=== PATIENT | male | born 1945 | race Caucasian/White ===

== ENCOUNTER 2016-08-09 20:35 | Inpatient (IN) | payer MEDICARE, OTHER ==
--- NOTE | ~2016-08-09 | HP ---
History And Physical [facility] [address] [place]. [address] NAME: DAMIAN MEDEIROS : 43 STATUS : ADM Marcos PAT#: [id number] AGE: 71 ADM/REG DATE : 08/09/16 MR#: [id number] REPORT SERV DATE: 08/10/16 DICTATED BY: MARGARITA ARAYA DATE: 08/09/16 REPORT STATUS : Draft TRANSCRIBED BY: MODBranden DATE: 08/09/16 DATE OF ADMISSION: 08/09/2016 POINT OF ENTRY: [facility] Emergency Department. PRIMARY [employer] DEPUTY SHERIFF: Dr. Potter. PRIMARY TIPPLE TENDER: Dr. Best. CHIEF COMPLAINT: Dizziness and syncope. HISTORY OF PRESENT ILLNESS: Mr. Medeiros is a 71-year-old gentleman with a history of coronary artery disease, status post PCI and coronary artery bypass grafting as well as ischemic cardiomyopathy with chronic systolic congestive heart failure with ejection fraction of 30% status post pacemaker and ICD insertion, who presents to emergency department today with multiple complaints including syncope as well as persistent dizziness. The patient and states that his troubles with dizziness have been going on now for a few weeks. He states that he is dizzy all the time at rest as well as with ambulation and exertion. Does not have any associated nausea or vomiting. Does not describe any classic vertigo-type symptoms, but is worse upon standing with movement of the head. Denies any hearing loss or tinnitus, but does report some troubles with severe headaches in the past few weeks. About eight days ago, the patient suffered a syncopal episode while rising from a seated position. He has continued to have very severe presyncopal episodes almost bordering on jose antonio syncope over the past week as well. also describes a sensation of disequilibrium as well as ataxia when Mr. Medeiros tries to get up to ambulate to the bedroom. He denies any fevers, night sweats, chills, cough, sputum production, abdominal pain, nausea, vomiting, diarrhea, constipation, dysuria, lower extremity edema, melena, hematochezia, or hemoptysis. He does report occasional episodes of chest pain, none recently. He has chronic shortness of breath, which is unchanged. Initial evaluation in the emergency department is notable for stable vital signs. Orthostatic vital signs also were unremarkable. Labs notable for troponin that was negative. INR was 1.7. Chest x-ray was clear. EKG showed an A-paced rhythm. The patient was subsequently admitted to the Hospitalist Service for further evaluation and management. COMPREHENSIVE REVIEW OF SYSTEMS: Otherwise negative unless listed in history present illness. PREVIOUS MEDICAL HISTORY: 1. Coronary artery disease with prior PCI and cardiac bypass grafting. 2. Ischemic cardiomyopathy. 3. Chronic systolic congestive heart failure with ejection fraction of 30%. 4. Status post pacemaker and ICD insertion. 5. COPD, on 2 L nasal cannula. History And Physical [address] [address] NAME: DAMIAN MEDEIROS : 43 STATUS : ADM Marcos PAT#: [id number] AGE: 71 ADM/REG DATE : 08/09/16 MR#: [id number] REPORT SERV DATE: 08/10/16 DICTATED BY: MARGARITA ARAYA DATE: 08/09/16 REPORT STATUS : Draft TRANSCRIBED BY: MODL DATE: 08/09/16 6. History of cerebrovascular accident. 7. Hypertension. 8. Hyperlipidemia. 9. Peripheral arterial disease. SURGICAL HISTORY: 1. Medtronic pacemaker and ICD insertion. 2. CABG. 3. PCI. 4. Abdominal aortic aneurysm. Endovascular repair. ALLERGIES: ARE TO CODEINE, PREDNISONE, WELL AN INTOLERANCE TO STATINS. HOME MEDICATIONS: 1. Aspirin 81 mg q.h.s. 2. Symbicort two puff inhalations b.i.d. 3. Coreg 25 mg b.i.d. 4. Colace 100 mg q.4 hours. 5. Imdur 30 mg daily. 6. Aldactone 25 mg daily. 7. Coumadin 6.5 mg daily. SOCIAL HISTORY: Still smokes about one pack every week. Denies any alcohol or illicits. He is . is at bedside. FAMILY MEDICAL HISTORY: Mother with diabetes, coronary artery disease, and cancer. Father with Alzheimer's and stroke. Siblings with cancer and coronary artery disease. LABS AND IMAGIN. White count is 5.0, hemoglobin is 12.6, hematocrit is 34.9, platelet count is 219. INR is 1.7. 2. Sodium is 126, potassium 4.0, chloride 92, carbon dioxide 27, BUN 10, creatinine 0.73 glucose is 89, calcium is 8.8, magnesium is 1.9, protein is 6.8, albumin is 2.9, bilirubin is 0.3, ALT 17, AST 24, alkaline phosphatase is 74. 3. Troponin is less than 0.02. 4. Chest x-ray per my review shows no acute cardiopulmonary abnormality. Does show COPD- type changes with flattened diaphragms and hyperinflation. 5. EKG per my review shows an A-paced rhythm. Heart rates in the low 60s and no evidence of any acute ischemia or infarction. PHYSICAL EXAMINATION: VITAL SIGNS: Temperature is 98.3 degrees Fahrenheit, pulse is 61, respirations 16, saturating 97% on room air, blood pressure 135/71. GENERAL: The patient is awake, alert, and in no acute distress, resting comfortably in bed. He is a chronically ill-appearing elderly male. is at bedside. HEENT: Atraumatic and normocephalic. Moist mucous membranes. Pupils are equal, round, and reactive to light and accommodation. Extraocular eye movements intact. He is edentulous. History And Physical [address] [address] NAME: DAMIAN MEDEIROS : 43 STATUS : ADM Marcos PAT#: [id number] AGE: 71 ADM/REG DATE : 08/09/16 MR#: [id number] REPORT SERV DATE: 08/10/16 DICTATED BY: MARGARITA ARAYA DATE: 08/09/16 REPORT STATUS : Draft TRANSCRIBED BY: DELORES DATE: 08/09/16 NECK: No jugular venous distention. No carotid bruits. CARDIAC: Regular rate and rhythm. No murmurs or gallops. Normal S1, S2. LUNGS: On oxygen. Does have decreased breath sounds in the base as well as prolonged expiratory phase and distant breath sounds, but no wheezes, rhonchi, or crackles. ABDOMEN: Soft, nontender, nondistended. Good bowel sounds. No rebound, guarding, or rigidity. EXTREMITIES: Warm and well perfused. No cyanosis, clubbing, or edema. SKIN: Warm and dry. PSYCH: Affect appropriate. NEURO: Alert and oriented x3. Cranial nerves 2 through 12 grossly intact. Speech is normal. Gait not assessed. Strength is 5/5 bilateral upper and lower extremities. Cerebellar function is intact with [id number]. The patient does have some lateral beating nystagmus with extreme gaze deviation as well as what appears to be some rotatory nystagmus with upward gaze deviation, which did induce worsening of the patient's chronic symptoms. ASSESSMENT: Mr. Meediros is a 71-year-old gentleman, who presents with a few-week history of persistent dizziness, disequilibrium, and ataxia as well as presyncope and syncopal episode. PROBLEM LIST: 1. Presyncope and syncope. 2. Dizziness and disequilibrium, concerning for vertigo. 3. Hyponatremia. 4. Chronic systolic congestive heart failure. 5. History of coronary artery disease. 6. Hypertension. PLAN: 1. Syncope. We will work this up with echocardiogram, carotid arterial Dopplers. Trend out cardiac enzymes as well as interrogate the patient's pacemaker. Of note, orthostatic vital signs are remarkable here. We will gently hydrate the patient given his hyponatremia. 2. Dizziness and disequilibrium concerning for vertigo. Based on the patient's history and exam, I am concern for BPPV as etiology of the patient's continuous sensation of dizziness and disequilibrium. We will check a stat CT scan of the brain here in the ER, order an MRI for the morning. We will empirically place the patient on some scheduled meclizine to see if that improves at all. 3. Chronic systolic congestive heart failure. The patient currently appears euvolemic at this time. We will check a BNP level. Continue the patient's home cardiac medications. 4. History of coronary artery disease. The patient denies any current chest pain, but has had some chest pain in the recent past. EKG is nonischemic. Troponin is negative. We will continue to trend these out. 5. Hyponatremia likely due to his Aldactone as well as history of heart failure. Checking a BNP level as well as thyroid function studies, urinalysis, urine lytes, and serum osms. Provide some gentle IV fluid hydration overnight. Recheck BMP in the morning. 6. Hypertension. We will hold the patient's carvedilol and Imdur overnight to see if this History And Physical [facility] [id number] [place]. [address] NAME: DAMIAN MEDEIROS : 43 STATUS : ADM Marcos PAT#: [id number] AGE: 71 ADM/REG DATE : 08/09/16 MR#: [id number] REPORT SERV DATE: 08/10/16 DICTATED BY: MARGARITA ARAYA DATE: 08/09/16 REPORT STATUS : Draft TRANSCRIBED BY: DELORES DATE: 08/09/16 improves his symptoms. 7. DVT prophylaxis. The patient is on Coumadin. CODE STATUS: The patient wished to be full code. NAIMA/DELORES Margarita Araya MD / [id number] CC: Shoaib Braun M.D. Gregory Keith Bruce, M.D. Ondrej J Lisy, M.D.
--- NOTE | ~2016-08-09 | DS ---
Discharge Summary [facility] [address] [facility] [place]. [address] NAME: DAMIAN MEDEIROS : 43 STATUS : DIS IN PAT#: [id number] AGE: 71 ADM/REG DATE : 08/10/16 MR#: [id number] REPORT SERV DATE: 08/13/16 DICTATED BY: FELIX JONES DATE: 08/12/16 REPORT STATUS : Draft TRANSCRIBED BY: MODL DATE: 08/12/16 ADMISSION DATE: 08/10/2016 DISCHARGE DATE: 08/12/2016 The patient is a 71-year-old male with a history of CVAs, hypertension, coronary artery disease status post PCI, heart failure with reduced EF, ischemic cardiomyopathy, who presented to the hospital with a complaint of dizziness and syncope. For further details please refer to H and P dictated by Dr. Boss on 08/10/2016. HOSPITAL COURSE: I assumed care of the patient on 08/10/2016. Briefly, given the patient's presenting complaint, Neurology consult was obtained. The patient subsequently had multiple imaging which included MRI, CT of the brain, which was negative. MRI/MRA of head and neck. Also during presentation given his complaint, the patient was started on meclizine; however, his symptoms were refractory to medication. Vitamin D was also ordered which noted the patient to be vitamin D deficient. The results of his office MRI and MRA were significant for a 50% stenosis of the left anterior carotid artery, and also there were previous small areas of infarct noted on MRI; however, no acute CVA was noted. The patient still reported tobacco use and given his history of multiple CVAs and hypertension the patient was counseled against tobacco use. Per Neurology recommendations, the patient's medication was optimized with the addition of vitamin D, atorvastatin, and scopolamine. Status post initiation of scopolamine, the patient's symptoms significantly improved. The patient was evaluated by Physical Therapy given his complaints. Per Physical Therapy recommendations, it was recommended that the patient be discharged to a rehab facility; however, the patient has adamantly refused going to Rehab Facility. Cardiology was also consulted on case to assist in management. From Cardiology perspective, his symptoms are not cardiac in nature. Given concern about his low blood pressure, the patient was started on midodrine with significant improvement. Given that imaging studies did not reveal any acute CVA that would explain his symptoms, medical management plan was to optimize the patient's risk factors. The patient was counseled against tobacco use and while in-house the patient was placed on nicotine patch and also will be prescribed nicotine patch to assist in smoking cessation. The patient was started on atorvastatin and he is already being anticoagulated with warfarin. Given improvement in his symptoms and given that the patient has adamantly refused about going to rehab, the patient will be discharged home today. Plan has been discussed with the patient, who voices understanding and is agreeable with this plan. DISCHARGE DIAGNOSES: 1. Vertigo. 2. Hyponatremia. 3. Vitamin D deficiency. 4. Coronary artery disease, status post percutaneous coronary intervention. 5. Heart failure with reduced ejection fraction. 6. Ischemic cardiomyopathy. 7. Hypertension. 8. Peripheral vascular disease. 9. History of cerebrovascular accident. Discharge Summary [address] [address] NAME: DAMIAN MEDEIROS : 43 STATUS : DIS IN [facility] WITH [facility]#: [id number] AGE: 71 ADM/REG DATE : 08/10/16 MR#: [id number] REPORT SERV DATE: 08/13/16 DICTATED BY: FELIX JONES DATE: 08/12/16 REPORT STATUS : Draft TRANSCRIBED BY: DELORES DATE: 08/12/16 DISCHARGE PHYSICAL EXAMINATION: VITAL SIGNS: Blood pressure 115/64 with a pulse of 62, respirations 18, O2 saturation 99% on 2 L. GENERAL: The patient lying in bed, appears stated age in no acute distress. HEENT: Normocephalic and atraumatic. Extraocular motors intact. NECK: Trachea midline and symmetric. No JVD noted. No thyromegaly present. CHEST: Nontender to palpation. CARDIOVASCULAR: Regular rate and rhythm. S1, S2. No murmurs, rubs, or gallops. LUNGS: Clear to auscultation bilaterally. ABDOMEN: Positive bowel sounds. Nontender. Nondistended. EXTREMITIES: No cyanosis, no clubbing, no edema. NEURO: The patient is alert and oriented x3. DISCHARGE MEDICATIONS: 1. Aspirin 81 mg p.o. 2. Coreg 3.125 mg p.o. twice a day. 3. Cholecalciferol 5000 units p.o. with supper. 4. Docusate 100 mg p.o. 48 hours. 5. Gabapentin 100 mg p.o. twice a day. 6. Nicotine 14 mg topical daily. 7. Scopolamine one patch topically q.72 hours. 8. Spironolactone 25 mg p.o. daily. 9. Warfarin 6.5 mg p.o. 10.Midodrine 2.5 mg p.o. at 9 o'clock, 1:00 p.m. and 6:00 p.m. 11.Symbicort two puffs inhalation twice a day. IMAGIN. MRI of brain with and without contrast, MRA head without contrast, MRA neck without contrast. Impression: Multi-foci of cortical encephalomalacias related to previous small areas of infarct bilateral occipital poles, left parietal and right temporal and old lacunar infarct in the cerebellum. No acute finding demonstrated in the brain on noncontrast and contrast enhanced MRI. 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 2. 50% stenosis left ICA at the point where it passes into the skull base, otherwise negative MRA of cervical vessel. 3. Carotid blood flow. Impression: Right carotid category 3 severe stenosis. There is a probable appearing plaque right vertebral antegrade subclavian velocity 16 cm/sec, left carotid category 2 moderate stenosis plaque appears mildly unremarkable. Left vertebral antegrade flow subclavian velocity 99 cm/sec. 4. Transthoracic echo. Summary: Severely dilated left ventricle with severe global left ventricular systolic dysfunction, EF 20%. No evidence of left ventricular thrombus by Definity. Echo contrast imaging, normal right ventricular size and systolic function. Moderate mitral regurgitation with mild left atrial enlargement. DISPOSITION: The patient has refused going to rehab, therefore the patient will be discharged home. Discharge Summary [facility] [address] [place]. [address] NAME: DAMIAN MEDEIROS : 43 STATUS : DIS IN PAT#: [id number] AGE: 71 ADM/REG DATE : 08/10/16 MR#: [id number] REPORT SERV DATE: 08/13/16 DICTATED BY: FELIX JONES DATE: 08/12/16 REPORT STATUS : Draft TRANSCRIBED BY: MODBranden DATE: 08/12/16 ACTIVITY: As tolerated. DIET: Cardiac diet. Greater than 30 minutes were spent providing counseling, coordinating discharge, dictation of note, medication reconciliation, writing prescription. PALLAVI/DELORES Felix Jones MD / [id number] CC: MD Nelson Hubbard M.D.
--- NOTE | ~2016-08-09 | CN ---
Consultation Report [facility] [address] [place]. [address] NAME: DAMIAN MEDEIROS : 43 STATUS : ADM Marcos PAT#: [id number] AGE: 71 ADM/REG DATE : 08/09/16 MR#: [id number] REPORT SERV DATE: 08/10/16 DICTATED BY: GERALD PEREZ DATE: 08/10/16 REPORT STATUS : Draft TRANSCRIBED BY: MODBranden DATE: 08/10/16 NEUROLOGICAL CONSULTATION EVALUATION DATE OF CONSULTATION: 08/10/2016 REASON FOR CONSULTATION: Persistent dizziness, headache, and recurrent syncope. HISTORY OF PRESENT ILLNESS: Mr. Medeiros is a 71-year-old male with known history of coronary artery disease, status post CABG, congestive heart failure with ejection fraction of 30%, history of defibrillator placement, who was admitted through the emergency room with complaints of dizziness, recurrent syncope, and persistent headache. As per the patient's , the patient's symptoms started approximately two weeks ago. No history of associated head trauma or other events as per history. The patient stated that he has had persistent dizziness when he walks, sits in the chair, or lies in bed regardless of his head position. The patient denied nausea, denied ringing in his ears. He has persistent left-sided hearing loss for many years. The patient's denied the patient having additional symptoms, which included weakness or numbness involving his face or extremities. The patient denied double vision, difficulty with his chewing and swallowing, denied difficulty with his speech. PAST MEDICAL HISTORY: History of cardiomyopathy, chronic systolic congestive heart failure, ejection fraction of 30%, status post PCI and coronary artery bypass grafting, and history of COPD. The patient is a chronic smoker. SOCIAL HISTORY: The patient smokes one pack of cigarettes per week and denied use of alcohol or other drugs. The patient is and the patient's provided additional history. REVIEW OF SYSTEMS: There is no history of associated trauma. No recent viral infections, fever, or chills. The patient denied having double vision, difficulty with his chewing or swallowing, which is mentioned in the history of present illness. The rest of the 14-point review of systems was negative. HOME MEDICATIONS: Included aspirin 81 mg, Coreg 25 mg p.o. b.i.d., Imdur 30 mg daily, Coumadin 6.5 mg daily, Aldactone 25 mg daily, and Symbicort inhalants p.r.n. b.i.d. FAMILY HISTORY: Significant for history of stroke in the patient's father, mother, and sister. There is also history of cancer and coronary artery disease. LABORATORY STUDIES: Sodium 133, potassium 3.9, chloride 100, BUN 9, creatinine 0.69. Glomerular filtration rate normal at 110, glucose 83. Calcium 8.8 and magnesium 1.9. WBC count 3.1, hemoglobin 13, hematocrit 37.1, and platelet count 212,000. PT/INR 1.9, CPK 51, CPK-MB fraction 1.2. Troponin less than 0.02. BNP 236 and TSH 1.21. Consultation Report [address] [place]. [address] NAME: DAMIAN MEDEIROS : 43 STATUS : ADM Marcos PAT#: [id number] AGE: 71 ADM/REG DATE : 08/09/16 MR#: [id number] REPORT SERV DATE: 08/10/16 DICTATED BY: GERALD PEREZ DATE: 08/10/16 REPORT STATUS : Draft TRANSCRIBED BY: DELORES DATE: 08/10/16 PHYSICAL EXAMINATION: GENERAL: The patient was pleasant and cooperative, did not appear in acute distress, was in the supine position. When questioned, stated that he is dizzy and has had persistent headache. In addition, the patient stated that he occasionally has chest pain. VITAL SIGNS: Blood pressure 129/68, pulse was 60, respirations 16, temperature was 97.8. Oxygen saturation 99%. HEAD AND NECK EXAMINATION: Showed head to be normocephalic. There was no evidence of trauma. Auscultation of the neck showed no evidence of bruits. EYE EXAM: Sclerae were nonicteric. Conjunctivae were pink. ENT EXAM: Showed patent airway, Mallampati class 2. Tongue was midline. No atrophy or fibrillations were noted. NECK: Supple. There was no Kernig's or Brudzinski's. Cervical range of motion was not impaired. No JVD. No thyromegaly appreciated. CHEST: Symmetrical. LUNGS: Showed decreased breath sounds. Otherwise, within normal range. HEART: Auscultation of the heart, regular S1, S2. I did not appreciate any murmurs or rubs. ABDOMEN: Soft, nontender. No organomegaly. EXTREMITIES: Show no clubbing, cyanosis. There is no peripheral edema. Peripheral pulses appeared intact. SKIN: Dry, clear, although appeared slightly hyperpigmented. It is not clear whether the patient has darker complexion. NEUROLOGICAL EXAMINATION: Mental Status Exam: The patient was alert, oriented to self, time, and place. Appeared to answer all the questions appropriately; however, as per patient's , he frequently forgets where he is going. In the past two weeks, as per patient's , his memory has been worse. The patient remembered 2/3 objects and had no difficulty with long-term memory. His speech was fluent for the most part. The patient had intermittent stuttering, which he has had since childhood. There was no aphasia or dysarthria. Cranial nerve examination 2 through 12: Visual smith on confrontation were intact. There was no evidence of field cut. Funduscopic exam showed no papilledema, hemorrhages, exudates. Pupils were 2 mm, reactive to light and accommodation. Extraocular movements were full. There was no nystagmus except for 1-beat nystagmus on lateral gaze. No limitation of upward or downward gaze was noted. Facial sensation, muscles of mastication, muscles of facial expression show no evidence of asymmetry or weakness. The rest of cranial nerve examination was normal. Lower cranial nerves were intact. Tongue was midline, no atrophy or fibrillations noted. Palate elevates symmetrically. Sternocleidomastoid and trapezius muscles were symmetrical and normal. MOTOR EXAM: Muscle bulk and tone were normal. Strength appeared 5/5 throughout. Deep tendon reflexes were symmetrical except for ankle jerks decreased. Babinski signs were not elicitable. SENSORY EXAM: Showed mildly decreased vibration distally in the lower extremities. Otherwise, within normal range. CEREBELLAR EXAM: [id number]-[id number], stuo-vy-dmav, rapid alternating movements were normal. The patient was "too dizzy to stand up." His stated that he staggers around at home, Consultation Report [facility] [address] [facility] [place]. [address] NAME: DAMIAN MEDEIROS : 43 STATUS : ADM Marcos PAT#: [id number] AGE: 71 ADM/REG DATE : 08/09/16 MR#: [id number] REPORT SERV DATE: 08/10/16 DICTATED BY: JOSEPHGERALD ROSE DATE: 08/10/16 REPORT STATUS : Draft TRANSCRIBED BY: DELORES DATE: 08/10/16 does not have a preference to fall to one side. CT scan of the head shows, at the time of admission, areas of old ? subacute infarcts were noted. Radiology, this compared from 2014, these areas appeared new, chronic appearing 1 cm right occipital lobe infarct and 2 mm old infarcts of right basal ganglia and internal capsule. IMPRESSION AND RECOMMENDATIONS: 1. The patient has increased risk of a stroke. We would recommend to rule out posterior circulation, new cerebrovascular accident. 2. We would recommend to obtain MRI of the brain and MRA of the neck and brain. The patient has an implanted defibrillator, which is compatible with the MRI. 3. We would rule out temporal arteritis as a cause of persistent headache. We would recommend to obtain sedimentation rate. Additional laboratory studies which may point to other causes of nutritional and vitamin deficiencies which may cause persistent dizziness include vitamin B12, folate deficiency, and vitamin D deficiency. 4. Cardiac evaluation is currently in progress. Recommend to increase activity gradually if tolerated. If Antivert is not helping to alleviate dizziness symptoms, we would recommend to try scopolamine patch, monitoring for urinary retention, confusion, etc., (side effects of scopolamine patch). If needed, cortisol level should be obtained. Stroke education and smoking cessation were discussed with the patient and his . The patient's stroke risk factors include coronary artery disease, poor ejection fraction, chronic tobacco use, prior history of stroke; as per the patient, he has had stroke in 2005. At that time, he had persistent left-sided weakness, which gradually had improved. Additional recommendations will follow according to the patient's progress and results of the studies. Thank you for allowing me to participate in this patient's care. OLGA/DELORES Gerald Perez MD / [id number] CC: Shoaib Waite M.D.
--- NOTE | ~2016-08-09 | CN ---
Consultation Report [facility] [address] [place]. [address] NAME: DAMIAN MEDEIROS : 43 STATUS : ADM Marcos PAT#: [id number] AGE: 71 ADM/REG DATE : 08/09/16 MR#: [id number] REPORT SERV DATE: 08/10/16 DICTATED BY: ARLETH ROY DATE: 08/10/16 REPORT STATUS : Draft TRANSCRIBED BY: DELORES DATE: 08/10/16 CARDIOLOGY CONSULTATION DATE OF CONSULTATION: REFERRING REASON: Dizziness, presyncope, and history of syncope. HISTORY OF PRESENT ILLNESS: This is a pleasant 71-year-old white gentleman with several medical problems well known to me from [facility] with known ischemic cardiomyopathy, a remote history of CABG, AICD in place, and COPD with remote history of CVA in [place] in 2009. Since then, he has been on anticoagulation with Coumadin. He has been very active and dancing once a week for many years until recently. He has chronic mild dyspnea on exertion, but no signs of fluid overload on physical exam. He has been reporting now two weeks of severe headaches daily, which is for the first time in his life according to his . He has severe dizziness and unsteadiness with minimal movement sometimes even at rest without any movement of his head. He has several presyncopal sensation and syncope one week ago when he stood up. He denied any lower extremity edema, recent chest pain, AICD discharge, or vomiting. Reportedly, he has a frontal headache daily, which is severe. He has not seen a neurologist recently. He was found to have some mild positional orthostatic changes in the emergency room with blood pressure lying down 149 systolic and standing 127 and felt dizzy. He has also some acute on chronic hyponatremia with initial sodium 126, now 133. His cardiac enzymes are negative. CT of the brain revealed chronic occipital lobe CVA. INR is 1.7. The patient is still complaining of severe headache, and with some minimal movement of his head, he feels dizzy and unsteady. The rest of the review of systems negative. He denied any recent trauma also. PAST MEDICAL HISTORY: 1. Coronary artery disease with a remote history of CABG in 2005 in [place] with last nuclear stress test negative for ischemia in 10/2015. 2. Chronic dyspnea on exertion, multifactorial etiology. 3. Chronic congestive heart failure, class II symptoms. 4. Ischemic cardiomyopathy, EF 30%. Last time assessed by echo in 10/2015. 5. Smoking dependence and COPD, on home oxygen. 6. AICD in place by Dr. Best without any recent discharges. 7. History of hypertension. 8. Peripheral artery disease with history of AAA repair by Dr. Ugalde. 9. Tendency to chronic hyponatremia. 10.Chronic anticoagulation with Coumadin since CVA in 2009. 11.History of severe myalgia with statin therapy. ALLERGIES: CODEINE AND STATIN. SOCIAL HISTORY: The patient is retired. He has been very active until now. He is . His is at bedside. He has been smoking entire life, currently one pack a day. Denies Consultation Report [address] [address] NAME: DAMIAN MEDEIROS : 43 STATUS : ADM Marcos PAT#: [id number] AGE: 71 ADM/REG DATE : 08/09/16 MR#: [id number] REPORT SERV DATE: 08/10/16 DICTATED BY: ARLETH ROY DATE: 08/10/16 REPORT STATUS : Draft TRANSCRIBED BY: DELORES DATE: 08/10/[address] drugs. He is using nursing home oxygen 2 L. FAMILY HISTORY: Negative for sudden cardiac deaths or premature coronary artery disease in the family. HOME MEDICATIONS: Aspirin 81 mg once a day; Symbicort inhaler; Coreg 25 mg twice a day, which is on hold now by hospitalist; Colace; Imdur 30 mg once a day; Aldactone 25 mg once a day; Coumadin 6.5 mg once a day. PHYSICAL EXAMINATION: GEN - An elderly gentleman in no acute distress with chronic dysarthria since CVA in 2009 complaining of severe headache and some positional dizziness with minimal activity with minimal movement of his head. HEENT - Pupils reactive to light and accommodation. Moist mucosa membrane. NECK: No JVD. Normal carotid upstroke. No carotid bruits. LUNGS: Decreased breath sounds, but no crackles. COR: Normal S1, S2. No S3 or S4. No significant rub or murmurs. AICD in place in the left prepectoral muscle area. ABD: Soft, nontender, nondistended. EXT: Lower extremity decreased pedal pulses bilaterally, but no edema. SKIN: Warm with normal turgor. MS - No kyphosis. NEURO/PSY - Alert and oriented. Nonfocal. DATA: INR 1.7. Hemoglobin 12.6. Sodium increasing from 126 to 133. Troponin three times negative. Brain natriuretic peptide 236. CT of the brain as above. Electrocardiogram; normal sinus rhythm, borderline signs of LVH. ASSESSMENT AND PLAN: 1. Positional lightheadedness and dizziness of multifactorial etiology. 2. Reported history of syncope one week ago, possible vasovagal. 3. Borderline orthostatic changes. 4. Acute on chronic hyponatremia. 5. Severe headache of unclear etiology. 6. Chronic anticoagulation since cerebrovascular accident in 2009. 7. Coronary artery disease, ischemic cardiomyopathy. 8. Chronic congestive heart failure with a recent fluid overload. The patient has several possible explanations for his severe dizziness and presyncope. He will need to be on fluid restriction due to his severe hyponatremia, but his sodium is already improving. It is likely that his syncope one week ago was vasovagal. He still has mild orthostasis. We will start a therapeutic trial of low dose of midodrine in addition to fluid restriction. It is possible that he may have vertigo, but reported dizziness even without movement of his head. I am concerned about his severe headaches in the setting of chronic anticoagulation. We will need to get help from Neurology and it is possible that he Consultation Report [address] [place]. [address] NAME: DAMIAN MEDEIROS : 43 STATUS : ADM Marcos PAT#: [id number] AGE: 71 ADM/REG DATE : 08/09/16 MR#: [id number] REPORT SERV DATE: 08/10/16 DICTATED BY: ARLETH ROY DATE: 08/10/16 REPORT STATUS : Draft TRANSCRIBED BY: MODL DATE: 08/10/16 may have another CVA also. I will check if this AICD is MRI compatible. We will follow the patient with you. I will restart low dose of carvedilol, but discontinue the Imdur. ODANUTA/MODL Arleth Roy M.D. / [id number] CC: Shoaib Braun M.D.
[2016-08-09 17:25] LABS: BASOPHILS 0.2 %; BASOPHILS ABSOLUTE 0.01 10/3/uL (0.0-0.16); EOSINOPHILS 3.8 %; EOSINOPHILS ABSOLUTE 0.19 10/3/uL (0.0-0.53); ER CBC TAT 0 Hrs 05 Mins; HEMATOCRIT 34.9 % (40.0-51.0); HEMOGLOBIN 12.6 g/dL (13.6-17.8); IMMATURE GRANULOCYTES 0.2 %; IMMATURE GRANULOCYTES ABSOLUTE 0.01 10/3/uL (0.0-0.11); LYMPHOCYTES 17.3 %; LYMPHOCYTES ABSOLUTE 0.87 10/3/uL (0.67-4.30); MEAN CORPUS HGB CONC 36.1 g/dL (32.0-36.0); MEAN CORPUSCULAR HEMOGLOB 29.7 pg (26.0-34.0); MEAN CORPUSCULAR VOLUME 82.3 fL (80-100); MEAN PLATELET VOLUME 9.8 fL (9.2-13.0); MONOCYTES 14.5 %; MONOCYTES ABSOLUTE 0.73 10/3/uL (0.21-1.20); NEUTROPHILS ABSOLUTE 3.21 10/3/uL (2.02-8.40); PLATELET COUNT 219 10/3/uL (150-400); RBC DISTRIBUTION WIDTH 14.8 % (12.0-16.0); RED CELL COUNT 4.24 10/6/uL (4.7-6.1)
[2016-08-09 17:27] LABS: MANUAL DIFF NO %
[2016-08-09 17:40] LABS: INTERNATIONAL NORMAL RATI 1.7 UNITS (-); PROTIME (NOT ORD) 20.2 SEC (12.0-14.5)
[2016-08-09 17:41] LABS: BUN (BLOOD UREA NITROGEN) 10 MG/DL (6-23); CALCIUM, SERUM 8.8 MG/DL (8.5-10.4); CHEST PAIN PROFILE TAT 0 Hrs 21 Mins; CHLORIDE, SERUM 92 MMOL/L (96-112); CO2 (CARBON DIOXIDE) 27 MMOL/L (24-34); CREATININE 0.73 MG/DL (0.70-1.30); GFR AFRICAN AMERICAN 107 ML/MIN (>=60); GFR NON AFRICAN AMERICAN 93 ML/MIN (>=60); GLUCOSE, SERUM 89 MG/DL (60-99); PARTIAL THROMBO TIME 36.5 SEC (22.5-37.2); TROPONIN I <0.02 NG/ML (<0.05)
[2016-08-09 17:45] LABS: SODIUM, SERUM 126 MMOL/L (135-148)
[~2016-08-09 20:35] MED LIST: ANTIBIOTIC; ARICEPT10 PO; ASAB PO; C1 PO; COREG25 PO; DSS PO; HALF81 PO; IMDUR30 PO; JANTOVEN5 MG PO; KLOR-CON M2020 MEQ PO; L20 PO; NITROSTAT0.4 MG SL; NORCO1 TA1 PO; PRAVACHOL40 MG PO; PRIN5 PO; PROAIR HFA INH; PROAM25 PO; SPIRO25 PO; SYMBICORT 160/41 INH INH; WARFARIN; ZESTRIL5 MG PO
[2016-08-09 20:46] LABS: ALBUMIN 2.9 G/DL (3.5-5.0); ALKALINE PHOSPHATASE 74 U/L (45-117); SGOT(AST) 23 U/L (5-40); SGPT(ALT) 17 U/L (5-65); TOTAL BILIRUBIN 0.3 MG/DL (0-1.2); TOTAL PROTEIN 6.8 G/DL (6.0-8.5)
[2016-08-09 20:47] LABS: DIRECT BILIRUBIN < 0.1 MG/DL (0.0-0.4); INDIRECT BILIRUBIN(NOT ORDER) 0.2 MG/DL (0.1-0.9)
[2016-08-10 00:52] LABS: CK-MB 1.2 NG/ML; CPK 56 U/L (0-200); TROPONIN I <0.02 NG/ML (<0.05)
[2016-08-10 06:11] LABS: INTERNATIONAL NORMAL RATI 1.9 UNITS (-); PROTIME (NOT ORD) 21.5 SEC (12.0-14.5)
[2016-08-10 06:13] LABS: BASOPHILS 0.7 %; BASOPHILS ABSOLUTE 0.02 10/3/uL (0.0-0.16); EOSINOPHILS 5.6 %; EOSINOPHILS ABSOLUTE 0.17 10/3/uL (0.0-0.53); HEMATOCRIT 37.1 % (40.0-51.0); LYMPHOCYTES 32.8 %; MANUAL DIFF NO %; MEAN CORPUSCULAR HEMOGLOB 29.1 pg (26.0-34.0); MEAN PLATELET VOLUME 9.6 fL (9.2-13.0); MONOCYTES 19.7 %; NEUTROPHILS 41.2 %; NEUTROPHILS ABSOLUTE 1.26 10/3/uL (2.02-8.40); PLATELET COUNT 212 10/3/uL (150-400); RBC DISTRIBUTION WIDTH 14.7 % (12.0-16.0); RED CELL COUNT 4.47 10/6/uL (4.7-6.1); WHITE BLOOD CELLS 3.1 10/3/uL (4.5-10.5)
[2016-08-10 06:19] LABS: WBC (NOT ORDERED) (RFLEX) 0 (0-5)
[2016-08-10 06:26] LABS: BUN (BLOOD UREA NITROGEN) 9 MG/DL (6-23); CALCIUM, SERUM 8.8 MG/DL (8.5-10.4); CHLORIDE, SERUM 100 MMOL/L (96-112); CO2 (CARBON DIOXIDE) 25 MMOL/L (24-34); CPK 51 U/L (0-200); CREATININE 0.69 MG/DL (0.70-1.30); FREE T4 1.16 NG/DL (0.76-1.46); GFR AFRICAN AMERICAN 110 ML/MIN (>=60); GFR NON AFRICAN AMERICAN 95 ML/MIN (>=60); GLUCOSE, SERUM 83 MG/DL (60-99); POTASSIUM, SERUM 3.9 MMOL/L (3.5-5.3); TROPONIN I <0.02 NG/ML (<0.05)
[2016-08-10 06:27] LABS: CK-MB 1.2 NG/ML; SODIUM, SERUM 133 MMOL/L (135-148)
[2016-08-10 07:03] LABS: CREATININE, URINE 35.7 MG/DL
[2016-08-10 07:13] LABS: ASCORBIC ACID (UR NOT ORDER) NEG (NEG); BILIRUBIN, URINE NEGATIVE (NEG); KETONE, URINE NEGATIVE (NEG); LEUKOCYTE ESTERASE(NOT OR NEG (NEG)
[2016-08-10 17:36] LABS: FOLATE 10.9 NG/ML (>5.2)
[2016-08-11 05:13] LABS: BASOPHILS 0.3 %; BASOPHILS ABSOLUTE 0.01 10/3/uL (0.0-0.16); EOSINOPHILS 4.8 %; EOSINOPHILS ABSOLUTE 0.18 10/3/uL (0.0-0.53); HEMATOCRIT 36.1 % (40.0-51.0); HEMOGLOBIN 12.6 g/dL (13.6-17.8); LYMPHOCYTES ABSOLUTE 1.08 10/3/uL (0.67-4.30); MEAN CORPUS HGB CONC 34.9 g/dL (32.0-36.0); MEAN CORPUSCULAR HEMOGLOB 29.4 pg (26.0-34.0); MEAN CORPUSCULAR VOLUME 84.1 fL (80-100); MEAN PLATELET VOLUME 9.9 fL (9.2-13.0); MONOCYTES 13.2 %; MONOCYTES ABSOLUTE 0.49 10/3/uL (0.21-1.20); NEUTROPHILS 52.7 %; NEUTROPHILS ABSOLUTE 1.96 10/3/uL (2.02-8.40); PLATELET COUNT 211 10/3/uL (150-400); RED CELL COUNT 4.29 10/6/uL (4.7-6.1); WHITE BLOOD CELLS 3.7 10/3/uL (4.5-10.5)
[2016-08-11 05:16] LABS: MANUAL DIFF NO %
[2016-08-11 05:25] LABS: A/G RATIO 0.8 (0.7-1.9); ALBUMIN 2.7 G/DL (3.5-5.0); ALKALINE PHOSPHATASE 63 U/L (45-117); BUN (BLOOD UREA NITROGEN) 9 MG/DL (6-23); CALCIUM, SERUM 8.7 MG/DL (8.5-10.4); CHLORIDE, SERUM 104 MMOL/L (96-112); CO2 (CARBON DIOXIDE) 26 MMOL/L (24-34); CREATININE 0.62 MG/DL (0.70-1.30); GFR AFRICAN AMERICAN 115 ML/MIN (>=60); GFR NON AFRICAN AMERICAN 99 ML/MIN (>=60); GLOBULIN 3.5 G/DL (2.5-4.1); GLUCOSE, SERUM 81 MG/DL (60-99); POTASSIUM, SERUM 4.2 MMOL/L (3.5-5.3); SGOT(AST) 16 U/L (5-40); SGPT(ALT) 15 U/L (5-65); SODIUM, SERUM 136 MMOL/L (135-148); TOTAL BILIRUBIN 0.2 MG/DL (0-1.2); TOTAL PROTEIN 6.2 G/DL (6.0-8.5)
[2016-08-11 05:37] LABS: INTERNATIONAL NORMAL RATI 1.8 UNITS (-); PROTIME (NOT ORD) 20.9 SEC (12.0-14.5)
[2016-08-12 06:29] LABS: BASOPHILS 0.4 %; BASOPHILS ABSOLUTE 0.02 10/3/uL (0.0-0.16); EOSINOPHILS 3.2 %; EOSINOPHILS ABSOLUTE 0.16 10/3/uL (0.0-0.53); HEMATOCRIT 38.4 % (40.0-51.0); HEMOGLOBIN 13.4 g/dL (13.6-17.8); IMMATURE GRANULOCYTES 0.2 %; IMMATURE GRANULOCYTES ABSOLUTE 0.01 10/3/uL (0.0-0.11); LYMPHOCYTES 18.1 %; MEAN CORPUS HGB CONC 34.9 g/dL (32.0-36.0); MEAN CORPUSCULAR HEMOGLOB 29.6 pg (26.0-34.0); MEAN PLATELET VOLUME 9.6 fL (9.2-13.0); MONOCYTES 13.1 %; MONOCYTES ABSOLUTE 0.65 10/3/uL (0.21-1.20); NEUTROPHILS ABSOLUTE 3.23 10/3/uL (2.02-8.40); PLATELET COUNT 197 10/3/uL (150-400); RED CELL COUNT 4.52 10/6/uL (4.7-6.1)
[2016-08-12 06:32] LABS: INTERNATIONAL NORMAL RATI 1.8 UNITS (-); MANUAL DIFF NO %; PROTIME (NOT ORD) 20.9 SEC (12.0-14.5)
[2016-08-12 06:39] LABS: A/G RATIO 0.7 (0.7-1.9); ALBUMIN 2.7 G/DL (3.5-5.0); ALKALINE PHOSPHATASE 66 U/L (45-117); BUN (BLOOD UREA NITROGEN) 15 MG/DL (6-23); CHLORIDE, SERUM 100 MMOL/L (96-112); CO2 (CARBON DIOXIDE) 26 MMOL/L (24-34); CREATININE 0.64 MG/DL (0.70-1.30); GFR AFRICAN AMERICAN 113 ML/MIN (>=60); GFR NON AFRICAN AMERICAN 98 ML/MIN (>=60); GLOBULIN 3.9 G/DL (2.5-4.1); GLUCOSE, SERUM 79 MG/DL (60-99); POTASSIUM, SERUM 4.1 MMOL/L (3.5-5.3); SGOT(AST) 16 U/L (5-40); SGPT(ALT) 14 U/L (5-65); SODIUM, SERUM 134 MMOL/L (135-148); TOTAL BILIRUBIN 0.4 MG/DL (0-1.2); TOTAL PROTEIN 6.6 G/DL (6.0-8.5)
[2016-08-12] MEDS ORDERED: LIPITOR80 MG PO (13:48)
[2016-08-12] MEDS ORDERED: D 5000 PO (13:49)
[2016-08-12] MEDS ORDERED: NEUR100 PO (13:50)
[2016-08-12] MEDS ORDERED: HABIT14 TOP (13:50)
[2016-08-12] MEDS ORDERED: TRANSSCOP TOP (13:51)
[2016-08-12] MEDS ORDERED: PROAM25 PO (13:52)
== END 2016-08-12 15:34 | disposition home or self-care (01) | DRG 57 ==
LOC: ER 20:35 → 7NO 22:19
PROVIDERS: Emergency Medicine; Hospitalist; Internal Medicine
PROC: 4B02XTZ Measurement of Cardiac Defibrillator, External Approach (ICD-10-PCS; principal; 2016-08-10)
DX: I69.398 Other sequelae of cerebral infarction (principal); I11.0 Hypertensive heart disease with heart failure; I50.22 Chronic systolic (congestive) heart failure; G93.89 Other specified disorders of brain; E87.1 Hypo-osmolality and hyponatremia; I65.23 Occlusion and stenosis of bilateral carotid arteries; J44.9 Chronic obstructive pulmonary disease, unspecified; R42 Dizziness and giddiness; I25.10 Atherosclerotic heart disease of native coronary artery without angina pectoris; Z95.1 Presence of aortocoronary bypass graft; F17.210 Nicotine dependence, cigarettes, uncomplicated; I25.5 Ischemic cardiomyopathy; E55.9 Vitamin D deficiency, unspecified; Z95.810 Presence of automatic (implantable) cardiac defibrillator
CPT/HCPCS: 70450; 70544; 70548; 70553; 71020; 80048; 80053; 80076; 81001; 82306; 82550; 82553; 82570; 82607; 82746; 83735; 83880; 83930; 83935; 84300; 84439; 84443; 84484; 85025; 85610; 85652; 85730; 93005; 93880; 94640; 97162-GP; 99285; A9270-GY; A9577; C8929; G8978-CJ-GP; G8979-CJ-GP; G8980-CJ-GP; Q9957